=== PATIENT | female | born 1985 | race American Indian/Alaskan Native ===

== ENCOUNTER 2019-01-21 08:49 | Emergency (ER) | payer SELFPAY ==
[2019-01-21 09:04] VITALS: BP 123/78
--- NOTE | 2019-01-21 10:21 | Emergency Department Report ---
ED Neck Pain/Injury HPI - General Chief Complaint: Headache Stated Complaint: HEADACHE/NECK PAIN/PAIN THROAT Time Seen by Provider: 01/21/19 09:59 Mode of arrival: Ambulatory Limitations: No Limitations - History of Present Illness Initial Comments: cc: I have a lump in my neck HPI: Ben is a healthy 33-year-old female who presents with a lump in her left side of her neck. Just under her left jaw. Tender to touch. No associated dental pain ear pain fever congestion cough. No previous history of inflamed lymph nodes. Symptom onset 2 days ago. MD Complaint: neck pain -: Gradual Place: other Severity: mild Quality: aching Consistency: constant Improves With: none Worsens With: none Associated Symptoms: none Treatments Prior to Arrival: none - Related Data Previous Rx's Medication Instructions Recorded Last Taken Type Amoxicillin [Trimox CAP] 500 mg PO TID 7 Days #21 capsule 01/21/19 Unknown Rx Allergies Allergy/AdvReac Type Severity Reaction Status Date / Time No Known Allergies Allergy Unverified 01/21/19 08:57 ED Review of Systems ROS: Stated complaint: HEADACHE/NECK PAIN/PAIN THROAT Other details as noted in HPI Constitutional: denies: fever, malaise ENT: throat pain. denies: congestion Respiratory: denies: cough, shortness of breath Cardiovascular: denies: chest pain Gastrointestinal: denies: abdominal pain, nausea, vomiting ED Past Medical Hx - Past Medical History Previous Medical History?: No - Surgical History Past Surgical History?: No - Social History Smoking Status: Never Smoker Substance Use Type: None - Medications Home Medications: Home Medications Medication Instructions Recorded Confirmed Last Taken Type Amoxicillin [Trimox CAP] 500 mg PO TID 7 Days #21 capsule 01/21/19 Unknown Rx ED Physical Exam - General Limitations: No Limitations General appearance: alert, in no apparent distress - Head Head exam: Present: atraumatic, normocephalic - Eye Eye exam: Present: normal appearance - ENT ENT exam: Present: mucous membranes moist - Neck Neck exam: Present: full ROM, lymphadenopathy (tender cervical lymph node 1.5 cm just under the angle of the mandible) - Respiratory Respiratory exam: Present: normal lung sounds bilaterally. Absent: respiratory distress, wheezes, rales, rhonchi - Cardiovascular Cardiovascular Exam: Present: regular rate, normal rhythm, normal heart sounds. Absent: systolic murmur, diastolic murmur, rubs, gallop - GI/Abdominal GI/Abdominal exam: Present: soft, normal bowel sounds. Absent: distended, tenderness, guarding, rebound - Extremities Exam Extremities exam: Present: normal inspection - Back Exam Back exam: Present: normal inspection - Neurological Exam Neurological exam: Present: alert, oriented X3 - Psychiatric Psychiatric exam: Present: normal affect, normal mood - Skin Skin exam: Present: warm, dry, intact, normal color. Absent: rash ED Course Vital Signs 01/21/19 09:01 Temperature 98.1 F Pulse Rate 83 Respiratory 18 Rate Blood Pressure 123/78 O2 Sat by Pulse 99 Oximetry ED Medical Decision Making - Medical Decision Making Acute cervical lymphadenitis: Patient given written and verbal education. If the lymph node does not decrease in size she understands to follow-up with her primary care physician. She was prescribed 7 day course of therapy with amoxicillin Critical care attestation.: If time is entered above; I have spent that time in minutes in the direct care of this critically ill patient, excluding procedure time. ED Disposition Clinical Impression: Lymphadenitis, acute Disposition: DC-01 TO HOME OR SELFCARE Is pt being admited?: No Does the pt Need Aspirin: No Condition: Stable Additional Instructions: You have an inflamed lymph node. After 7 days of antibiotic therapy, the lymph node should return to normal size without tenderness. If you still feel the lump after the 7 days, please see your primary physician for further testing. Prescriptions: Amoxicillin [Trimox CAP] 500 mg PO TID 7 Days #21 capsule Referrals: PRIMARY CARE, [Referring] - 7-10 days Forms: Work/School Release Form(ED)
== END 2019-01-21 10:34 | disposition home or self-care (01) ==
LOC: ED 08:49
DX: L04.0 Acute lymphadenitis of face, head and neck (principal)
CPT/HCPCS: 99282